=== PATIENT | female | born 1950 | race Caucasian/White ===

== ENCOUNTER → 2016-12-06 | Outpatient (CLI) | payer MEDICARE, OTHER ==
--- NOTE | 2016-12-06 17:14 | RAD ---
DATE: 12/06/2016 EXAM: MAMMO DARWIN SCREENING BILATERAL HISTORY: Asymptomatic screening mammogram. COMPARISON: 07/22/2015, 07/25/2012, 03/20/2009 This study was interpreted with the benefit of Computerized Aided Detection (CAD). The breast parenchyma is primarily fatty replaced. Breast parenchyma level density A. FINDINGS: Bilateral CC and MLO views as well as bilateral tomosynthesis was performed. No suspicious minor calcifications, masses or areas of architectural distortion. Findings are stable from the prior mammogram. IMPRESSION: Negative bilateral mammogram. BI-RADS CATEGORY: 1 NEGATIVE RECOMMENDED FOLLOW-UP: 12M 12 MONTH FOLLOW-UP PQRS compliance statement: Patient information was entered into a reminder system with a target due date 12/06/2017 for the next mammogram. Mammography is a sensitive method for finding small breast cancers, but it does not detect them all and is not a substitute for careful clinical examination. A negative mammogram does not negate a clinically suspicious finding and should not result in delay in biopsying a clinically suspicious abnormality. "Our facility is accredited by the [employer] Mammography Program."
== END | disposition home or self-care (01) ==
LOC: MAMMO 14:05
PROVIDERS: ATTEND Nurse Practitioner Family
DX: Z12.31 Encounter for screening mammogram for malignant neoplasm of breast (principal)
CPT/HCPCS: 77063; G0202; 77067

== ENCOUNTER → 2017-07-03 | Outpatient (CLI) | payer MEDICARE, OTHER ==
--- NOTE | 2017-07-03 15:07 | RAD ---
2 views of the Chest 07/03/2017 2:00 AM Indication: COUGH FOR A WEEK Comparison: Chest radiograph April 04, 2007 Findings: There is no focal consolidation or infiltrate identified. There is no effusion or pneumothorax. The cardiomediastinal silhouette and pulmonary vasculature are within normal limits. No osseous abnormality is identified. Impression: No evidence of acute cardiopulmonary process.
== END | disposition home or self-care (01) ==
LOC: PMG 12:54
PROVIDERS: ATTEND Nurse Practitioner Family
DX: R05 Cough (principal)
CPT/HCPCS: 71046

== ENCOUNTER → 2017-12-12 | Outpatient (CLI) | payer MEDICARE, OTHER ==
--- NOTE | 2017-12-12 15:06 | CARD ---
MR#: [id number] Date of Study: 12/12/2017 Ordering Physician: TRISTIAN MCNEIL, Referring Physician: Danitza MCDONNELL: DILMA Hilario APPROVED REPORT EXAM: Two-dimensional and M-mode echocardiogram with Doppler and color Doppler. Other Information Quality : AverageHR: 94bpm Technically limited study due to body habitus. INDICATION Abnormal ECG RISK FACTORS Hypertension 2D DIMENSIONS Left Atrium(2D)3.5 (1.6-4.0cm)IVSd1.2 (0.7-1.1cm) Aortic Root(2D)3.0 (2.0-3.7cm)LVDd4.7 (3.9-5.9cm) LVOT Diameter2.3 (1.8-2.4cm)PWd1.2 (0.7-1.1cm) LVDs3.7 (2.5-4.0cm)FS (%) 21.4 % SV44.3 mlLVEF(%)43.5 (>50%) Aortic Valve AoV Peak Leonidas.181.3cm/sAoV VTI34.6cm AO Peak GR.13.1mmHgLVOT Peak Leonidas.97.7cm/s LVOT VTI 19.90cmAO Mean GR.7mmHg ERIK (VMAX)2.90we3BDG (VTI)2.39cm2 Mitral Valve MV E Yfedcdmv653.8cm/sMV DECEL OLYA405yg MV A Dzyrrgif83.5cm/sE/A Ratio3.0 Pulmonary Valve PV Peak Hxmcfdli547.7cm/sPV Peak Grad.10mmHg Pulmonary Vein S1 Kkxutfbh62.2cm/sD2 Szbtoyjn68.2cm/s LEFT VENTRICLE The left ventricle is normal size. There is mild concentric left ventricular hypertrophy. Left ventri clay systolic function is mildly impaired. The Ejection Fraction is 40-45%. Septal motion suggestive o f conduction. Mild global hypokinesis. Cannot rule out inferior wall hypokinesis. Tissue Doppler imag ing reveals moderate left ventricular diastolic dysfunction. RIGHT VENTRICLE The right ventricle apex is not well visualized. The right ventricular systolic function is normal. ATRIA The left atrium size is normal. The right atrium size is normal. The interatrial septum is intact wit h no evidence for an atrial septal defect or patent foramen ovale as noted on 2-D or Doppler imaging. AORTIC VALVE The aortic valve is not well visualized. Doppler and Color Flow revealed no significant aortic regurg itation. There is no significant aortic valvular stenosis. There is no aortic valvular vegetation. MITRAL VALVE The mitral valve is mildly thickened. There is no evidence of mitral valve prolapse. There is no mitr al valve stenosis. Doppler and Color-flow revealed trace to mild mitral regurgitation. TRICUSPID VALVE The tricuspid valve is not well visualized. Doppler and Color Flow revealed no tricuspid valve regurg itation noted. There is no tricuspid valve prolapse or vegetation. There is no tricuspid valve stenos is. PULMONIC VALVE The pulmonic valve is not well visualized. Doppler and Color Flow revealed no pulmonic valvular regur gitation. There is no pulmonic valvular stenosis. GREAT VESSELS The aortic root is not well visualized, but is probably normal size. The IVC is dilated. The IVC laurita apses <50% with inspiration. PERICARDIAL EFFUSION There is no pleural effusion. There is no evidence of significant pericardial effusion. Critical Notification Critical Value: No <Conclusion> Left ventricle systolic function is mildly impaired. The Ejection Fraction is 40-45%. Septal motion suggestive of conduction. Mild global hypokinesis. Cannot rule out inferior wall hypoki nesis. Signed by : Nish Sellers, Electronically Approved : 12/12/2017 15:05:45
== END | disposition home or self-care (01) ==
LOC: ECHO 13:49
PROVIDERS: ATTEND Physician Assistant Medical
DX: I34.0 Nonrheumatic mitral (valve) insufficiency (principal); I51.7 Cardiomegaly
CPT/HCPCS: 93306

== ENCOUNTER → 2018-01-09 | Outpatient (CLI) | payer MEDICARE, OTHER ==
[~2018-01-09] VITALS: Ht 162.6 cm; Wt 79.4 kg
[~2018-01-09] MED LIST: ALBU18HF IH; FLUT1DIS3 IH; PHEN37.598 PO; REGADENOSON 0.4 MG/5 ML DISP.SYRIN. IV ONE; SIMV10TA3 PO
--- NOTE | 2018-01-09 12:32 | RAD ---
MR#: [id number] Date of Study: 01/09/2018 Ordering Physician: QUETA ELDRIDGE, Referring Physician: SKYLER CASTILLO Tech: CASA Priest ARRT (Analy) (N) APPROVED REPORT Test Type: Pharmacological Stress Nurse/Tech: KAM Rasmussen Test Indications: abn. ekg Cardiac History: High cholesterol Medications: See Electronic Medical Record Medical History: See Electronic Medical Record Resting ECG: SR, LBBB Resting Heart Rate: 67 bpm Resting Blood Pressure: 164/67mmHg Pretest Chest Pain: None Nurse/Tech Notes SR, LBBB Consent: The procedure was explained to the patient in lay terms. Informed consent was witnessed. Ahmet eout was entered into [employer]. History and Stress Test performed by CASA Priest ARRT (R) (N) Pharm. Details Pharmacologic stress testing was performed using 0.4mg per 5ml of regadenoson given intravenously ove r 7-10 seconds. Stress Symptoms No chest pain or symptoms. POST EXERCISE Reason for Termination: Infusion complete Target HR: 129 Max HR: 103 bpm 79% of Maximum Predicted HR: 129 bpm Exercise duration: 6 min:sec, Stage Max Blood Pressure: 149/69mmHg Blood Pressure response to exercise: Normal blood pressure response during stress. Chest Pain: No. Arrhythmia: No. ST Change: No. INTERPRETATION Stress EKG Conclusion: Baseline EKG showed sinus rhythm with LBBB. Nondiagnostic changes at peak str ess. No arrhythmias. Imaging Protocol IMAGE PROTOCOL: Rest Tc-99m/stress Tc-99m 1 day Rest: Stress: Viability: Radiopharm.Tc99m RhvagdkjsAd99f Sestamibi Bcbq79kNo 33mCi Img Date 01/09/2018 01/09/2018 Inj-Img Bpla29kpv. 45min. Rest Admin Site:IV - Left AntecubitalAdministrator: CASA Priest ARRT (R)(N) Stress Admin Site: IV - Left AntecubitalAdministrator: CASA Priest ARRT (Analy)(N) STRESS DATA End Diast. Vol.138.0mlAv. Heart Rate84.0bpm LVEDV index BSA3.0mlCardiac Output0.1L/min End Syst. Vol.71.0mlCO Index BSA5.7L/min LVESV index BSA1.0mlMyocardial Svxq904.0g Eject. Igfjogmj77.0% Stress Rates Pk. Fill Rate1.96EDV/secLVtime Pk. Fill 66.79msec Pk. Empty Rate2.46ESV/secLVtime Pk. Dtymx415.59msec 1/3 Pk. Fill1.47EDV/sec Stress Scores Regional WT2.00Summed WT26.00 Regional WM0.00Summed WM22.00 LV Perfusion Scintigraphic images showed small fixed defect involving the apical wall consistent with previous kael cardial infarction without any significant reversibility. Wall Motion Apical wall hypokinesis. Abnormal septal wall motion probably secondary to conduction defect. The eje ction fraction is calculated at 49%. LV Perf. Quant 17 Seg. SSS6.00 17 Seg. SRS4.00 17 Seg. SDS2.00 Stress Defect Extent (% LAD)21.30Rest Defect Extent (% LAD)12.50Rev. Defect Extent (% LAD)2.50 Stress Defect Extent (% LCX) 0.00Rest Defect Extent (% LCX)0.00Rev. Defect Extent (% LCX)0.00 Stress Defect Extent (% RCA)0.00Rest Defect Extent (% RCA)0.00Rev. Defect Extent (% RCA)0.00 Stress Defect Extent (% KAEL)10.40Rest Defect Extent (% KAEL)7.60Rev. Defect Extent (% KAEL)0.90 Conclusion 1. Regadenoson cardioisotope stress test showed small apical wall infarct without any significant isc hemia. 2. Apical wall hypokinesis and abnormal septal wall motion from bundle branch block with ejection fra ction At 49%. 3. Low to intermediate risk for cardiac events. Signed by : Wander Luo, Electronically Approved : 01/09/2018 12:30:37
== END | disposition home or self-care (01) ==
LOC: NM 07:33
PROVIDERS: ATTEND Internal Medicine Cardiovascular Disease
DX: I45.4 Nonspecific intraventricular block (principal); E78.00 Pure hypercholesterolemia, unspecified
CPT/HCPCS: 78452; 93017; 96374; 96375; 96376; A9500; J2785

== ENCOUNTER → 2018-11-20 | Outpatient (CLI) | payer MEDICARE, OTHER ==
[~2018-11-20] MED LIST changes: -ALBU18HF IH; +ALBU2.5V8 IH; -REGADENOSON 0.4 MG/5 ML DISP.SYRIN. IV ONE
--- NOTE | 2018-11-21 10:42 | CARD ---
MR#: [id number] Date of Study: 11/20/2018 Ordering Physician: QUETA ELDRIDGE, Referring Physician: QUETA ELDRIDGE, Tech: Brit Ball APPROVED REPORT EXAM: Two-dimensional and M-mode echocardiogram with Doppler and color Doppler. Other Information Quality : GoodHR: 67bpm INDICATION Lower Edema RISK FACTORS Hypertension Hyperlipidemia Asthma 2D DIMENSIONS RVDd2.4 (2.9-3.5cm)Left Atrium(2D)4.3 (1.6-4.0cm) IVSd1.1 (0.7-1.1cm)Aortic Root(2D)2.9 (2.0-3.7cm) LVDd5.5 (3.9-5.9cm)LVOT Diameter1.8 (1.8-2.4cm) PWd1.1 (0.7-1.1cm)LVDs3.9 (2.5-4.0cm) FS (%) 29.1 %SV80.8 ml LVEF(%)55.4 (>50%) Aortic Valve AoV Peak Leonidas.169.9cm/sAoV VTI40.3cm AO Peak GR.11.6mmHgLVOT Peak Leonidas.89.9cm/s LVOT VTI 21.11cmAO Mean GR.7mmHg ERIK (VMAX)1.41lb2RRI (VTI)1.39cm2 Mitral Valve MV E Kwumyyoh95.6cm/sMV DECEL KZLE601pc MV A Bpztfiqe197.4cm/sE/A Ratio0.8 Pulmonary Valve PV Peak Ciihktdw067.7cm/sPV Peak Grad.4mmHg Tricuspid Valve TR P. Rbbwiruu349jq/sRAP YCYBQLJQ0eoSv TR Peak Gr.63ayRkEIJW51moBh Pulmonary Vein S1 Xeylulua25.1cm/sD2 Lieuxgod38.1cm/s LEFT VENTRICLE The left ventricle is normal size. There is mild concentric left ventricular hypertrophy. The left ve ntricular systolic function is mildly diminished. The Ejection Fraction is 45-50%. Transmitral Dopple r flow pattern is Grade I-abnormal relaxation pattern. RIGHT VENTRICLE The right ventricle is normal size. There is normal right ventricular wall thickness. The right ventr icular systolic function is normal. ATRIA The left atrium size is normal. The right atrium size is normal. The interatrial septum is intact wit h no evidence for an atrial septal defect or patent foramen ovale as noted on 2-D or Doppler imaging. AORTIC VALVE The aortic valve is mildly thickened. Doppler and Color Flow revealed trace aortic regurgitation. The re is no significant aortic valvular stenosis. MITRAL VALVE The mitral valve is normal in structure and function. There is no evidence of mitral valve prolapse. There is no mitral valve stenosis. Doppler and Color-flow revealed trace mitral regurgitation. TRICUSPID VALVE The tricuspid valve is normal in structure and function. Doppler and Color Flow revealed trace tricus pid valve regurgitation noted with an estimated PAP of 22 mmHg. There is no tricuspid valve stenosis. PULMONIC VALVE The pulmonic valve is not well visualized. Doppler and Color Flow revealed trace pulmonic valvular re gurgitation. GREAT VESSELS The aortic root is normal in size. The IVC is normal in size and collapses >50% with inspiration. PERICARDIAL EFFUSION There is no evidence of significant pericardial effusion. Critical Notification Critical Value: No <Conclusion> The left ventricular systolic function is mildly diminished. The Ejection Fraction is 45-50%. Transmitral Doppler flow pattern is Grade I-abnormal relaxation pattern. Trace aortic regurgitation. Trace mitral regurgitation. Trace tricuspid valve regurgitation noted with an estimated PAP of 22 mmHg. There is no evidence of significant pericardial effusion. Signed by : Wander Luo, Electronically Approved : 11/21/2018 10:41:43
== END | disposition home or self-care (01) ==
LOC: ECHO 12:45
PROVIDERS: ATTEND Internal Medicine Cardiovascular Disease
DX: R60.0 Localized edema (principal); I11.9 Hypertensive heart disease without heart failure; E78.5 Hyperlipidemia, unspecified; J45.909 Unspecified asthma, uncomplicated; R00.8 Other abnormalities of heart beat
CPT/HCPCS: 93306

== ENCOUNTER → 2019-12-03 | Outpatient (CLI) | payer MEDICARE, OTHER ==
[~2019-12-03] MED LIST changes: +HYDR-3165 PO; +ONDA4TAB12 PO; +SIMV10TA15 PO; -SIMV10TA3 PO
--- NOTE | 2019-12-03 16:14 | CARD ---
MR#: [id number] Date of Study: 12/03/2019 Ordering Physician: QUETA ELDRIDGE, Referring Physician: QUETA ELDRIDGE, Tech: Solange Bradshaw [facility] APPROVED REPORT EXAM: Two-dimensional and M-mode echocardiogram with Doppler and color Doppler. Other Information Quality : Fair Technically limited study due to body habitus. INDICATION Abnormal ECG 2D DIMENSIONS RVDd1.8 (2.9-3.5cm)Left Atrium(2D)3.1 (1.6-4.0cm) IVSd0.8 (0.7-1.1cm)Aortic Root(2D)2.4 (2.0-3.7cm) LVDd6.1 (3.9-5.9cm)LVOT Diameter1.9 (1.8-2.4cm) PWd0.8 (0.7-1.1cm)LVDs4.8 (2.5-4.0cm) FS (%) 21.2 %SV78.7 ml LVEF(%)42.3 (>50%) Aortic Valve AoV Peak Leonidas.120.5cm/sAoV VTI22.4cm AO Peak GR.5.8mmHgLVOT Peak Leonidas.94.6cm/s LVOT VTI 19.49cmAO Mean GR.3mmHg ERIK (VMAX)2.90ix0WEE (VTI)2.38cm2 Mitral Valve MV E Rjxfssof76.0cm/sMV DECEL OPVL323qb MV A Ghhlwgig67.6cm/sE/A Ratio0.8 Tricuspid Valve TR P. Vsmpoxci111dj/sRAP WDZVOCQI8kjNs TR Peak Gr.41ejGxNANL32emTv Pulmonary Vein S1 Esvqibka43.4cm/sD2 Kdgbimga07.5cm/s LEFT VENTRICLE The Left Ventricle is mildly dilated. There is normal left ventricular wall thickness. Left ventricle ejection fraction is moderately impaired. The Ejection Fraction is 35%. The septal wall motion sugge stive of conduction defect. There is moderate global hypokinesis of the left ventricle. Tissue Dopple r imaging reveals moderate left ventricular diastolic dysfunction. RIGHT VENTRICLE The right ventricle is normal size. The right ventricular systolic function is normal. ATRIA The left atrium size is normal. The right atrium size is normal. The interatrial septum is intact wit h no evidence for an atrial septal defect or patent foramen ovale as noted on 2-D or Doppler imaging. AORTIC VALVE The aortic valve is calcified but opens well. Doppler and Color Flow revealed trace aortic regurgitat ion. There is no significant aortic valvular stenosis. MITRAL VALVE The mitral valve is calcified but opens well. There is no evidence of mitral valve prolapse. There is no mitral valve stenosis. Doppler and Color-flow revealed mild mitral regurgitation. TRICUSPID VALVE The tricuspid valve is normal in structure and function. The PA pressure was estimated at 30 mmHg. Do ppler and Color Flow revealed trace tricuspid regurgitation. There is no tricuspid valve stenosis. PULMONIC VALVE The pulmonic valve is not well visualized. Doppler and Color Flow revealed no pulmonic valvular regur gitation. There is no pulmonic valvular stenosis. GREAT VESSELS The aortic root is normal in size. The ascending aorta is not well seen. The IVC is normal in size an d collapses >50% with inspiration. PERICARDIAL EFFUSION There is no evidence of significant pericardial effusion. Critical Notification Critical Value: No <Conclusion> Left ventricle ejection fraction is moderately impaired. The Ejection Fraction is 35%. The septal wall motion suggestive of conduction defect. There is moderate global hypokinesis of the l eft ventricle. Signed by : Queta Eldridge, Electronically Approved : 12/03/2019 16:13:40
== END ==
LOC: ECHO 12:50
PROVIDERS: ATTEND Internal Medicine Cardiovascular Disease
DX: I08.0 Rheumatic disorders of both mitral and aortic valves (principal)
CPT/HCPCS: 93306

== ENCOUNTER 2020-01-15 16:46 | Emergency (ER) | payer MEDICARE, OTHER ==
[~2020-01-15] VITALS: Ht 162.6 cm; Wt 85.9 kg
[~2020-01-15 16:46] MED LIST changes: -HYDR-3165 PO; -ONDA4TAB12 PO
--- NOTE | 2020-01-15 17:09 | PHYS DOC ---
Past History Past Medical History: CHF () Past Surgical History: Cholecystectomy () General Adult EDM: Chief Complaint: NAUSEA/VOMITING/DIARRHEA HPI: HPI: 69F with PMH of HTN, CHF, p/w dull midabdominal pain that began this afternoon around 12PM at rest. Now also involves the RLQ. Prior bjorn. No other abd surgeries. Also reports N/V x4, loose BM x1, as well as some mild SOA. No CP, fever, chills, dysuria, flank pain, hematuria. No prior similar episodes. No aggravating or alleviating factors. () Review of Systems: Review of Systems: Gen: No fever, chills. Eyes: No blurred vision, diplopia. ENT: No nasal congestion, sore throat. CV: No CP, palpitations. Resp. No cough. Reports dyspnea. GI: Reports diarrhea, abd pain, N/V. : No dysuria, hematuria. Neuro: No DIXON, dizziness, weakness. MSK: No myalgia, arthralgia, back pain. Skin: No acute rash or lesion. () Heart Score: Risk Factors: Risk Factors: DM, Current or recent (<one month) smoker, HTN, HLP, family hist ory of CAD, obesity. Risk Scores: Score 0 - 3: 2.5% MACE over next 6 weeks - Discharge Home Score 4 - 6: 20.3% MACE over next 6 weeks - Admit for Clinical Observation Score 7 - 10: 72.7% MACE over next 6 weeks - Early Invasive Strategies () Current Medications: Current Meds: Current Medications Medications (Trade) Dose Ordered Sig/Marilynn Start Time Stop Time Status Last Admin Dose Admin Ondansetron HCl (Zofran) 4 mg 1X ONCE 01/15/20 17:15 01/15/20 17:16 UNV () Allergies: Allergies: Allergies Coded Allergies Type Severity Reaction Last Updated Verified Penicillins Allergy Unknown 01/09/18 Yes Sulfa (Sulfonamide Antibiotics) Allergy Unknown 01/09/18 Yes cephalexin Allergy Unknown 01/09/18 Yes levofloxacin Allergy Unknown 01/09/18 Yes () Physical Exam: PE: Gen: NAD. Well nourished. Head: NC/AT. Eyes: No scleral icterus. No conjunctival injection. ENT: MMM. Posterior OP clear. Neck: Supple. CV: RRR. Peripheral pulses intact. Resp: CTAB. Abd: Soft. Nondistended. Mid abdominal and right lower abdominal tenderness without rebound, guarding, rigidity. No flank percussion tenderness. No overlying skin changes. MSK: No peripheral cyanosis. No edema. Neuro: Awake and alert. Skin. Warm. Dry. Psych: Appropriate mood & affect. (ENDER DIAZ DO) EKG: EKG: EKG at 1721. Sinus rhythm. Heart rate 73. Intraventricular conduction delay with QRS interval of 154 ms. Anteroseptal and inferior Q waves. No STEMI. Interpreted by me. (ENDER DIAZ DO) Radiology/Procedures: Radiology/Procedures: CHEST X-RAY INDICATION: Reason: SOA / Spl. Instructions: / History: . TECHNIQUE: Single view COMPARISON: None FINDINGS: The heart size is normal. The great vessels appear unremarkable. There is no hilar or mediastinal mass. Lungs are mildly hypoventilatory but show no focal infiltrates. There is no pleural effusion or pneumothorax. There are no significant osseous abnormalities. IMPRESSION: No active cardiopulmonary disease. Electronically signed by: Humberto Hare MD (01/15/2020 5:26 PM) [facility] (ENDER DIAZ DO) Impressions: EXAM: CT Abdomen and Pelvis with IV contrast INDICATION: Reason: Mid abd and RLQ pain, OMNI 300, 60ml / Spl. Instructions: / History: TECHNIQUE: Multi-detector row CT images were acquired from the lung bases through the abdomen and pelvis with the use of IV contrast. Sagittal and coronal images were acquired from the transaxial data. All CT scans performed at this facility utilize dose optimization techniques as appropriate to the exam, including the following: Automated exposure control and adjustment of the mA and/or KV according to patient size (this includes techniques or standardized protocols for targeted exams where dose is indication/reason for exam). IV CONTRAST: Administered ORAL CONTRAST: Not administered COMPARISON: None FINDINGS: LOWER CHEST: Unremarkable LIVER: Unremarkable BILIARY SYSTEM: Gallbladder is surgically absent. Bile ducts are not dilated. PANCREAS: Unremarkable SPLEEN: Unremarkable ADRENALS: Unremarkable KIDNEYS & URETERS: Distal 2 mm right ureteral stone (image 61 series 2) is associated with mild right periureteral soft tissue stranding and parapelvic soft tissue stranding with grade 1 hydronephrosis. Left kidney has a partially exophytic 1 cm cyst at the superior pole and requires no additional imaging follow-up. BLADDER: Unremarkable REPRODUCTIVE ORGANS: Myomatous uterus, including calcified 4.6 cm fundal fibroid. GASTROINTESTINAL: Scattered colonic diverticuli. Otherwise the stomach, small bowel, and colon are unremarkable. The appendix is normal. MESENTERY/PERITONEUM/RETROPERITONEUM: Unremarkable VASCULAR: Unremarkable LYMPH NODES: No adenopathy OSSEOUS & SOFT TISSUES: Unremarkable IMPRESSION: Distal right ureteral obstruction from a 2 mm stone. Electronically signed by: Humberto Hare MD (01/15/2020 6:40 PM) [facility] [place] DICTATED AND SIGNED BY: HUMBERTO HARE MD DATE: 01/15/201839 CC: CHELLY BAH DO; ENDER DIAZ DO; TRISTIAN MCNEIL ~ (CHELLY BAH DO) Course & Med Decision Making: Course & Med Decision Making Pertinent Labs and Imaging studies reviewed. (See chart for details) In summary, 69F with HTN, CHF, prior bjorn, p/w mid abd and RLQ pain, N/V/D. No complaints. Benign exam. HDS. Abd labs and CTAP ordered and remain pending. Given zofran. Signed out to Dr. Bah pending remainder of studies and disposition. (ENDER DIAZ DO) Course & Med Decision Making The patient's labs are unremarkable. Her urinalysis is negative for infection but is positive for blood. CT scan shows an obstructing kidney stone of 2 mm. Her creatinine is 1.1. A stone of this size should pass. I will discharge her with [place] 5/325 for pain and Zofran. The patient will make an appointment with the urologist in case it does not pass in the next couple days. If she develops a fever or other concerning symptoms, she will return to the emergency room. She is stable for discharge at this time. (CHELLY BAH DO) Dragon Disclaimer: Dragon Disclaimer: This electronic medical record was generated, in whole or in part, using a voice recognition dictation system. (ENDER DIAZ DO) Departure Departure: Impression: Primary Impression: Abdominal pain Additional Impression: Kidney stone on right side Disposition: HOME/RESIDENCE PRIOR TO ADM Condition: STABLE Referrals: TRISTIAN MCNEIL (PCP) Patient Instructions: Kidney Stones, Zpnc-jm-Cohb Scripts Hydrocodone Bit/Acetaminophen (NORCO 5-325 TABLET) 1 Each Tablet 1 TAB PO PRN Q6HRS PRN for PAIN, #14 TAB 0 Refills Prov: CHELLY BAH DO 01/15/20 Ondansetron (ONDANSETRON ODT) 4 Mg Tab.rapdis 1 TAB PO PRN Q6-8HRS PRN for VOMITING, #16 TAB Prov: CHELLY BAH DO 01/15/20 Justification of Admission: Justification of Admission: Justification of Admission Dx: N/A (ENDER DIAZ DO) Justification of Admission Dx: N/A (CHELLY BAH DO) ENDER DIAZ DO Jan 15, 2020 17:09 CHELLY BAH DO Jan 15, 2020 18:51
--- NOTE | 2020-01-15 17:27 | EKG ---
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
--- NOTE | 2020-01-15 17:29 | RAD ---
EXAM: PORTABLE CHEST 1V INDICATION: Reason: SOA / Spl. Instructions: / History: . TECHNIQUE: Single view COMPARISON: None FINDINGS: The heart size is normal. The great vessels appear unremarkable. There is no hilar or mediastinal mass. Lungs are mildly hypoventilatory but show no focal infiltrates. There is no pleural effusion or pneumothorax. There are no significant osseous abnormalities. IMPRESSION: No active cardiopulmonary disease. Electronically signed by: Ariela Hare MD (01/15/2020 5:26 PM) [facility]
[2020-01-15] MEDS ORDERED: ONDANSETRON PF 4 MG/2 ML VIAL. IVP ONE ×2 (17:30→18:30)
[2020-01-15] MEDS ORDERED: IOHEXOL 300 MG/ML 75 ML VIAL. IV ONE (17:30)
[2020-01-15 17:35] LABS: BASO # 0.1 x10^3/uL (0.0-0.2); BASO % 1 % (0-3); EOS # 0.1 x10^3/uL (0.0-0.7); EOS % 1 % (0-3); HEMATOCRIT 42.5 % (36.0-47.0); LYMPH # 1.4 x10^3/uL (1.0-4.8); LYMPH % 14 % (24-48); MEAN CORPUSCULAR HEMOGLOBIN 27 pg (25-35); MEAN CORPUSCULAR HGB CONC 33 g/dL (31-37); MEAN CORPUSCULAR VOLUME 83 fL (79-100); MONO # 0.4 x10^3/uL (0.0-1.1); MONO % 4 % (0-9); NEUT # 7.6 x10^3uL (1.8-7.7); NEUT % 80 % (31-73); PLATELET COUNT 222 x10^3/uL (140-400); RED BLOOD COUNT 5.12 x10^6/uL (3.50-5.40); RED CELL DISTRIBUTION WIDTH 14.7 % (11.5-14.5); WHITE BLOOD COUNT 9.5 x10^3/uL (4.0-11.0)
[2020-01-15 17:43] LABS: CALCIUM 9.5 mg/dL (8.5-10.1); CREATININE 1.1 mg/dL (0.6-1.0); GFR 49.1; POTASSIUM 3.9 mmol/L (3.5-5.1)
[2020-01-15 17:49] LABS: ALBUMIN 4.2 g/dL (3.4-5.0); ALBUMIN/GLOBULIN RATIO 1.2 (1.0-1.7); TOTAL BILIRUBIN 0.3 mg/dL (0.2-1.0); TOTAL PROTEIN 7.8 g/dL (6.4-8.2)
--- NOTE | 2020-01-15 18:43 | RAD ---
EXAM: CT Abdomen and Pelvis with IV contrast INDICATION: Reason: Mid abd and RLQ pain, OMNI 300, 60ml / Spl. Instructions: / History: TECHNIQUE: Multi-detector row CT images were acquired from the lung bases through the abdomen and pelvis with the use of IV contrast. Sagittal and coronal images were acquired from the transaxial data. All CT scans performed at this facility utilize dose optimization techniques as appropriate to the exam, including the following: Automated exposure control and adjustment of the mA and/or KV according to patient size (this includes techniques or standardized protocols for targeted exams where dose is indication/reason for exam). IV CONTRAST: Administered ORAL CONTRAST: Not administered COMPARISON: None FINDINGS: LOWER CHEST: Unremarkable LIVER: Unremarkable BILIARY SYSTEM: Gallbladder is surgically absent. Bile ducts are not dilated. PANCREAS: Unremarkable SPLEEN: Unremarkable ADRENALS: Unremarkable KIDNEYS & URETERS: Distal 2 mm right ureteral stone (image 61 series 2) is associated with mild right periureteral soft tissue stranding and parapelvic soft tissue stranding with grade 1 hydronephrosis. Left kidney has a partially exophytic 1 cm cyst at the superior pole and requires no additional imaging follow-up. BLADDER: Unremarkable REPRODUCTIVE ORGANS: Myomatous uterus, including calcified 4.6 cm fundal fibroid. GASTROINTESTINAL: Scattered colonic diverticuli. Otherwise the stomach, small bowel, and colon are unremarkable. The appendix is normal. MESENTERY/PERITONEUM/RETROPERITONEUM: Unremarkable VASCULAR: Unremarkable LYMPH NODES: No adenopathy OSSEOUS & SOFT TISSUES: Unremarkable IMPRESSION: Distal right ureteral obstruction from a 2 mm stone. Electronically signed by: Ariela Hare MD (01/15/2020 6:40 PM) [facility]
[2020-01-15 18:55] LABS: BILIRUBIN,URINE NEG (NEG); CLARITY,URINE HAZY; COLOR,URINE YELLOW; GLUCOSE,URINE 100 mg/dL (NEG)
[2020-01-15 18:56] LABS: BACTERIA,URINE 0 /HPF (0-FEW); NITRITE,URINE NEG (NEG); RBC,URINE >40 /HPF (0-2); SQUAMOUS EPITHELIAL CELL,UR FEW /LPF; UROBILINOGEN,URINE 0.2 mg/dL (0.2 mg/dL); WBC,URINE 0 /HPF (0-4)
[2020-01-15] MEDS ORDERED: HYDR-3165 PO (19:12)
[2020-01-15] MEDS ORDERED: ONDA4TAB12 PO (19:12)
[2020-01-15] MEDS ORDERED: HYDROcodone/APAP 5/325MG 1 TAB TABLET PO ONE (19:15)
[2020-01-15 19:20] VITALS: BP 166/72
== END 2020-01-15 19:23 | disposition home or self-care (01) ==
LOC: ER 16:46
DX: N13.2 Hydronephrosis with renal and ureteral calculous obstruction (principal); I11.0 Hypertensive heart disease with heart failure; I50.9 Heart failure, unspecified; Z90.49 Acquired absence of other specified parts of digestive tract; Z88.0 Allergy status to penicillin; Z88.2 Allergy status to sulfonamides; Z88.1 Allergy status to other antibiotic agents
CPT/HCPCS: 36415; 71045; 74177; 80053; 81001; 83690; 83735; 84484; 85025; 93005; 96374; 96376; 99285; J2405; Q9967

== ENCOUNTER → 2020-03-04 | Outpatient (CLI) | payer MEDICARE, OTHER ==
[~2020-03-04] MED LIST changes: +HYDR-3165 PO; +ONDA4TAB12 PO
--- NOTE | 2020-03-05 09:16 | RAD ---
MUGA Clinical Indication: Reason: nonischemic cardiomyopathy Comparison: None. Technique: 24.7 mCi of Tc-99 M labeled Ultratag red blood cells. Findings: Patient heart rate is 72 bpm. Multiple rejected beats are noted, many of which had short R-R time. Correlate for PVCs. The calculated left ventricular ejection fraction is 48.6%. Impression: Left ventricular ejection fraction of 48.6%. Electronically signed by: Rebel Vegas MD (03/05/2020 9:13 AM) [id number]
== END ==
LOC: NM 09:07
PROVIDERS: ATTEND Internal Medicine Cardiovascular Disease
DX: I42.9 Cardiomyopathy, unspecified (principal)
CPT/HCPCS: 78472; A9560

== ENCOUNTER → 2020-04-13 | Outpatient (CLI) | payer MEDICARE, OTHER ==
[~2020-04-13] MED LIST changes: +SACU1TAB PO
[2020-04-16 11:13] VITALS: BP 141/75
== END ==
LOC: LAB 13:12
PROVIDERS: ATTEND Nurse Anesthetist, Certified Registered
DX: Z01.812 Encounter for preprocedural laboratory examination (principal); H26.8 Other specified cataract; Z20.828 Contact with and (suspected) exposure to other viral communicable diseases
CPT/HCPCS: C9803; U0003

== ENCOUNTER → 2020-04-16 | Day surgery (SDC) | payer MEDICARE, OTHER ==
[~2020-04-16] MED LIST changes: +ACETAMINOPHEN 500 MG TABLET PO PRN; +BALANCED SALT IRRIG SOLN NO.2 500 ML IO ONE; +BENZONATATE 100 MG CAPSULE. PO PRN; +BRIMONIDINE 0.2% OPHTH SOLUTION 5ML BOTTLE. OS ONE; +CHONDROIT-SOD-HYALURONATE KIT. OS ONE; +EPINEPHrine AMPULE 0.5 MG in BALANCED SALT IRRIG SOLN PLUS 500 ML IRR ONE; +IBUPROFEN 200 MG TABLET PO PRN; +IPRATRPIUM/ALBUTEROL 0.5/2.5MG 3 ML NEBU. NEB PRN; +IV RINGERS SOLUTION,LACTATED 1,000 ML IV SCH; +LIDO/EPI IN BSS OPHTH 4 ML SYRINGE. OD PRN; +LIDO/EPI IN BSS OPHTH 4 ML SYRINGE. OS PRN; +LIDOCAINE 2% JELLY 6ML IN APPLICATOR. OS PRN; +METO-313 PO; +MIDAZOLAM HCL PF 2 MG/2 ML VIAL. IV ONE; +MIDAZOLAM HCL PF 2 MG/2 ML VIAL. ONE; +MOXIFLOXACIN 0.5% OPHTH SOLUTION 3ML BOTTLE. ONE; +NON FORMULARY ITEM OS ONE; +ONDANSETRON PF 4 MG/2 ML VIAL. IV PRN; +PHENYLEPHRINE 10% OPHTH SOLUTION 5ML BOTTLE. OS PRN; +PHENYLEPHRINE 2.5% OPHTH SOLUTION 2ML BOTTLE. OS SCH; +POVIDONE-IODINE 5% OPHTH SOLUTION 30ML BOTTLE. ONE; +POVIDONE-IODINE 5% OPHTH SOLUTION 30ML BOTTLE. OS ONE; +POVIDONE-IODINE 5% OPHTH SOLUTION 30ML BOTTLE. OS PRN; +PROPARACAINE 0.5% OPHTH SOLUTION 15ML BOTTLE. OS ONE; +PROPARACAINE 0.5% OPHTH SOLUTION 15ML BOTTLE. OS PRN; +TOBRAMYCIN 0.3% OPHTH SOLUTION 5ML BOTTLE. OS SCH; +TROPICAMIDE 1% OPHTH SOLUTION 15ML BOTTLE. OS SCH; +prednisoLONE ACETATE 1% OPHTH SUSPENSION 5ML BOTTLE. OS ONE
[2020-04-16] MEDS: TROPICAMIDE 1% OPHTH SOLUTION 15ML BOTTLE. OS SCH ×3 (09:33→09:59)
[2020-04-16] MEDS: PHENYLEPHRINE 2.5% OPHTH SOLUTION 2ML BOTTLE. OS SCH ×3 (09:33→09:59)
[2020-04-16] MEDS: DICLOFENAC SODIUM 0.1% OPHTH SOLUTION 2.5ML BOTTLE. OS SCH ×2 (09:34→09:41)
[2020-04-16] MEDS: TOBRAMYCIN 0.3% OPHTH SOLUTION 5ML BOTTLE. OS SCH ×2 (09:34→09:41)
[2020-04-16 11:13] VITALS: BP 141/75
--- NOTE | 2020-04-16 11:19 | PDOC4 ---
SURGEON: Chaim Walden MD Date of Procedure: 04/16/20 PREOP Diagnosis Visually significant cataract: Left Eye OS Pre-existing astigmatism: Left Eye OS POSTOP Diagnosis Same PROCEDURE: Phaco w/ posterior chamber IOL: Left Eye OS ANESTHESIA x Deep forniceal periocular 2% Lidocaine jelly Josi/retro bulbar block with 2% Lidocaine with 0.5% Marcaine DESCRIPTION OF PROCEDURE The risks, benefits, and alternatives were discussed with the patient who elected to proceed. Informed consent was obtained in writing and placed in the chart After anesthetizing the eye topically, the patient was taken to the operating room, and the operative eye was prepped and draped in the usual sterile fashion for ocular surgery. A wire lid speculum was placed. A 1-mm clear corneal paracentesis incision was created with the side-port blade at a position three o'clock hours clockwise from the temporal cornea. Then, 1% non-preserved Lidocaine with epinephrine was injected into the anterior chamber followed by viscoelastic. Cotton-tipped applicators were used to stabilize the globe, and a 2.4 mm keratome was used to create a self-sealing incision in clear cornea at the temporal limbus. The Utrata forceps were used to create a continuous curvilinear capsulorrhexis. Balanced saline solution was injected vi a cannula beneath the capsulorrhexis edge to hydrodissect the lens nucleus and cortex from the lens capsule. The phacoemulsification handpiece and a chopping instrument were then used to remove the lens nucleus. The remaining epinuclear material and cortex were removed with the irrigation/aspiration handpiece. Viscoelastic was used to re-inflate the lens capsule, and the intraocular lens was injected directly into the capsular bag. The corneal wound edges were hydrated with balanced salt solution on a cannula and the irrigation/aspiration handpiece was used to extract the remaining viscoelastic. Cefuroxime 0.1mg/ml / Vigamox 0.5% was injected into the anterior chamber intracamerally. The wounds were inspected and found to be watertight at an appropriate intraocular pressure. Topical antibiotic drops were placed on the corneal surface. LRI: No If Yes, Number [] [place] [] Length [] degrees Depth [] microns Incision Clifford: 180 Toric Lens Clifford 105 Patch/shield with Maxitrol/Tobradex/Erythromycin ointment: Yes No Co-managed patients/postop examination stable for co-management with referring doctor. CHAIM WALDEN MD Apr 16, 2020 11:19
== END | disposition home or self-care (01) ==
LOC: SURG 08:34
PROVIDERS: ATTEND Ophthalmology
DX: H25.12 Age-related nuclear cataract, left eye (principal); H52.202 Unspecified astigmatism, left eye; J45.909 Unspecified asthma, uncomplicated; E78.00 Pure hypercholesterolemia, unspecified; I11.0 Hypertensive heart disease with heart failure; I50.9 Heart failure, unspecified; N13.2 Hydronephrosis with renal and ureteral calculous obstruction; Z90.49 Acquired absence of other specified parts of digestive tract; Z98.890 Other specified postprocedural states; Z88.0 Allergy status to penicillin; Z88.2 Allergy status to sulfonamides; Z88.8 Allergy status to other drugs, medicaments and biological substances; Z79.899 Other long term (current) drug therapy
CPT/HCPCS: 66984; J0171; J2250; V2632

== ENCOUNTER → 2020-04-27 | Outpatient (CLI) | payer MEDICARE, OTHER ==
[2020-04-16 11:13] VITALS: BP 141/75
[~2020-04-27] MED LIST changes: -ACETAMINOPHEN 500 MG TABLET PO PRN; -BALANCED SALT IRRIG SOLN NO.2 500 ML IO ONE; -BENZONATATE 100 MG CAPSULE. PO PRN; -BRIMONIDINE 0.2% OPHTH SOLUTION 5ML BOTTLE. OS ONE; -CHONDROIT-SOD-HYALURONATE KIT. OS ONE; -EPINEPHrine AMPULE 0.5 MG in BALANCED SALT IRRIG SOLN PLUS 500 ML IRR ONE; -IBUPROFEN 200 MG TABLET PO PRN; -IPRATRPIUM/ALBUTEROL 0.5/2.5MG 3 ML NEBU. NEB PRN; -IV RINGERS SOLUTION,LACTATED 1,000 ML IV SCH; -LIDO/EPI IN BSS OPHTH 4 ML SYRINGE. OD PRN; -LIDO/EPI IN BSS OPHTH 4 ML SYRINGE. OS PRN; -LIDOCAINE 2% JELLY 6ML IN APPLICATOR. OS PRN; -MIDAZOLAM HCL PF 2 MG/2 ML VIAL. IV ONE; -MIDAZOLAM HCL PF 2 MG/2 ML VIAL. ONE; -MOXIFLOXACIN 0.5% OPHTH SOLUTION 3ML BOTTLE. ONE; -NON FORMULARY ITEM OS ONE; -ONDANSETRON PF 4 MG/2 ML VIAL. IV PRN; -PHENYLEPHRINE 10% OPHTH SOLUTION 5ML BOTTLE. OS PRN; -PHENYLEPHRINE 2.5% OPHTH SOLUTION 2ML BOTTLE. OS SCH; -POVIDONE-IODINE 5% OPHTH SOLUTION 30ML BOTTLE. ONE; -POVIDONE-IODINE 5% OPHTH SOLUTION 30ML BOTTLE. OS ONE; -POVIDONE-IODINE 5% OPHTH SOLUTION 30ML BOTTLE. OS PRN; -PROPARACAINE 0.5% OPHTH SOLUTION 15ML BOTTLE. OS ONE; -PROPARACAINE 0.5% OPHTH SOLUTION 15ML BOTTLE. OS PRN; -TOBRAMYCIN 0.3% OPHTH SOLUTION 5ML BOTTLE. OS SCH; -TROPICAMIDE 1% OPHTH SOLUTION 15ML BOTTLE. OS SCH; -prednisoLONE ACETATE 1% OPHTH SUSPENSION 5ML BOTTLE. OS ONE
== END ==
LOC: LAB 11:42
PROVIDERS: ATTEND Nurse Anesthetist, Certified Registered
DX: Z01.812 Encounter for preprocedural laboratory examination (principal); H26.8 Other specified cataract; Z20.828 Contact with and (suspected) exposure to other viral communicable diseases
CPT/HCPCS: U0003

== ENCOUNTER → 2020-04-30 | Day surgery (SDC) | payer MEDICARE, OTHER ==
[~2020-04-30] MED LIST changes: +ACETAMINOPHEN 500 MG TABLET PO PRN; +BALANCED SALT IRRIG OPHTH SOLN 15 ML BOTTLE. IRR ONE; +BALANCED SALT IRRIG SOLN NO.2 500 ML IO ONE; +BENZONATATE 100 MG CAPSULE. PO PRN; +BRIMONIDINE 0.2% OPHTH SOLUTION 5ML BOTTLE. OD ONE; +CHONDROIT-SOD-HYALURONATE KIT. OD ONE; +IBUPROFEN 200 MG TABLET PO PRN; +IPRATRPIUM/ALBUTEROL 0.5/2.5MG 3 ML NEBU. NEB PRN; +IV RINGERS SOLUTION,LACTATED 1,000 ML IV SCH; +LIDO/EPI IN BSS OPHTH 2.7 ML SYRINGE. OD ONE; +MIDAZOLAM HCL PF 2 MG/2 ML VIAL. IV ONE; +MOXIFLOXACIN 0.5% OPHTH SOLUTION 3ML BOTTLE. OD SCH; +ONDANSETRON PF 4 MG/2 ML VIAL. IV PRN; +PHENYLEPHRINE 10% OPHTH SOLUTION 5ML BOTTLE. OD PRN; +POVIDONE-IODINE 5% OPHTH SOLUTION 30ML BOTTLE. OD ONE; +POVIDONE-IODINE 5% OPHTH SOLUTION 30ML BOTTLE. OD PRN; +PROPARACAINE 0.5% OPHTH SOLUTION 15ML BOTTLE. OD ONE; +PROPARACAINE 0.5% OPHTH SOLUTION 15ML BOTTLE. OD PRN; +TOBRAMYCIN 0.3% OPHTH SOLUTION 5ML BOTTLE. OD ONE; +prednisoLONE ACETATE 1% OPHTH SUSPENSION 5ML BOTTLE. OD ONE
[2020-04-30] MEDS: TROPICAMIDE 1% OPHTH SOLUTION 15ML BOTTLE. OD SCH ×3 (08:15→08:29)
[2020-04-30] MEDS: PHENYLEPHRINE 2.5% OPHTH SOLUTION 2ML BOTTLE. OD SCH ×3 (08:16→08:32)
[2020-04-30] MEDS: DICLOFENAC SODIUM 0.1% OPHTH SOLUTION 2.5ML BOTTLE. OD SCH ×2 (08:16→08:23)
--- NOTE | 2020-04-30 09:28 | PDOC4 ---
SURGEON: Chaim Walden MD Date of Procedure: 04/30/20 PREOP Diagnosis Visually significant cataract: Right Eye OD Pre-existing astigmatism: Right Eye OD POSTOP Diagnosis Same PROCEDURE: Phaco w/ posterior chamber IOL: Right Eye OD ANESTHESIA Deep forniceal periocular 2% Lidocaine jelly Josi/retro bulbar block with 2% Lidocaine with 0.5% Marcaine DESCRIPTION OF PROCEDURE The risks, benefits, and alternatives were discussed with the patient who elected to proceed. Informed consent was obtained in writing and placed in the chart After anesthetizing the eye topically, the patient was taken to the operating room, and the operative eye was prepped and draped in the usual sterile fashion for ocular surgery. A wire lid speculum was placed. A 1-mm clear corneal paracentesis incision was created with the side-port blade at a position three o'clock hours clockwise from the temporal cornea. Then, 1% non-preserved Lidocaine with epinephrine was injected into the anterior chamber followed by viscoelastic. Cotton-tipped applicators were used to stabilize the globe, and a 2.4 mm keratome was used to create a self-sealing incision in clear cornea at the temporal limbus. The Utrata forceps were used to create a continuous curvilinear capsulorrhexis. Balanced saline solution was injected v ia cannula beneath the capsulorrhexis edge to hydrodissect the lens nucleus and cortex from the lens capsule. The phacoemulsification handpiece and a chopping instrument were then used to remove the lens nucleus. The remaining epinuclear material and cortex were removed with the irrigation/aspiration handpiece. Viscoelastic was used to re-inflate the lens capsule, and the intraocular lens was injected directly into the capsular bag. The corneal wound edges were hydrated with balanced salt solution on a cannula and the irrigation/aspiration handpiece was used to extract the remaining viscoelastic. Cefuroxime 0.1mg/ml / Vigamox 0.5% was injected into the anterior chamber intracamerally. The wounds were inspected and found to be watertight at an appropriate intraocular pressure. Topical antibiotic drops were placed on the corneal surface. LRI: No If Yes, Number [] [place] [] Length [] degrees Depth [] microns Incision [place]: 180 Toric Lens [place] [[id number]] Patch/shield with Maxitrol/Tobradex/Erythromycin ointment: 2 Yes No Co-managed patients/postop examination stable for co-management with referring doctor. CHAIM WALDEN MD Apr 30, 2020 09:28
[2020-04-30 09:38] VITALS: BP 159/81
== END | disposition home or self-care (01) ==
LOC: SURG 07:56
PROVIDERS: ATTEND Ophthalmology
DX: H25.11 Age-related nuclear cataract, right eye (principal); H52.201 Unspecified astigmatism, right eye; J45.909 Unspecified asthma, uncomplicated; I11.0 Hypertensive heart disease with heart failure; I50.9 Heart failure, unspecified; E78.00 Pure hypercholesterolemia, unspecified; Z98.890 Other specified postprocedural states; Z79.899 Other long term (current) drug therapy; Z90.49 Acquired absence of other specified parts of digestive tract; Z88.0 Allergy status to penicillin; Z88.8 Allergy status to other drugs, medicaments and biological substances; Z88.1 Allergy status to other antibiotic agents; Z87.442 Personal history of urinary calculi
CPT/HCPCS: 66984; J2250; V2632

== ENCOUNTER → 2021-05-11 | Outpatient (CLI) | payer MEDICARE, OTHER ==
[2020-04-30 09:38] VITALS: BP 159/81
[~2021-05-11] MED LIST changes: -ACETAMINOPHEN 500 MG TABLET PO PRN; -BALANCED SALT IRRIG OPHTH SOLN 15 ML BOTTLE. IRR ONE; -BALANCED SALT IRRIG SOLN NO.2 500 ML IO ONE; -BENZONATATE 100 MG CAPSULE. PO PRN; -BRIMONIDINE 0.2% OPHTH SOLUTION 5ML BOTTLE. OD ONE; -CHONDROIT-SOD-HYALURONATE KIT. OD ONE; -IBUPROFEN 200 MG TABLET PO PRN; -IPRATRPIUM/ALBUTEROL 0.5/2.5MG 3 ML NEBU. NEB PRN; -IV RINGERS SOLUTION,LACTATED 1,000 ML IV SCH; -LIDO/EPI IN BSS OPHTH 2.7 ML SYRINGE. OD ONE; -MIDAZOLAM HCL PF 2 MG/2 ML VIAL. IV ONE; -MOXIFLOXACIN 0.5% OPHTH SOLUTION 3ML BOTTLE. OD SCH; -ONDANSETRON PF 4 MG/2 ML VIAL. IV PRN; -PHENYLEPHRINE 10% OPHTH SOLUTION 5ML BOTTLE. OD PRN; -POVIDONE-IODINE 5% OPHTH SOLUTION 30ML BOTTLE. OD ONE; -POVIDONE-IODINE 5% OPHTH SOLUTION 30ML BOTTLE. OD PRN; -PROPARACAINE 0.5% OPHTH SOLUTION 15ML BOTTLE. OD ONE; -PROPARACAINE 0.5% OPHTH SOLUTION 15ML BOTTLE. OD PRN; -TOBRAMYCIN 0.3% OPHTH SOLUTION 5ML BOTTLE. OD ONE; -prednisoLONE ACETATE 1% OPHTH SUSPENSION 5ML BOTTLE. OD ONE
--- NOTE | 2021-05-11 17:46 | CARD ---
MR#: [id number] Date of Study: 05/11/2021 Ordering Physician: QUETA ELDRIDGE, Referring Physician: QUETA ELDRIDGE, Tech: Brit Ball, [facility] APPROVED REPORT EXAM: Two-dimensional and M-mode echocardiogram with Doppler and color Doppler. Other Information Quality : AverageHR: 61bpm INDICATION Cardiomyopathy RISK FACTORS Hypertension Hyperlipidemia Asthma 2D DIMENSIONS Left Atrium(2D)2.7 (1.6-4.0cm)IVSd0.8 (0.7-1.1cm) Aortic Root(2D)3.0 (2.0-3.7cm)LVDd5.7 (3.9-5.9cm) LVOT Diameter2.0 (1.8-2.4cm)PWd0.9 (0.7-1.1cm) LVDs3.0 (2.5-4.0cm)FS (%) 46.1 % SV121.0 mlLVEF(%)76.9 (>50%) Aortic Valve AoV Peak Leonidas.155.5cm/sAoV VTI35.9cm AO Peak GR.9.7mmHgLVOT Peak Leonidas.99.3cm/s LVOT VTI 20.20cmAO Mean GR.5mmHg ERIK (VMAX)1.81jy5HSO (VTI)1.75cm2 Mitral Valve MV E Hnfzgxqo04.6cm/sMV E Peak Gr.4mmHg MV DECEL [id number] A Hjiiavrb09.8cm/s MV E Mean Gr.1mmHgE/A Ratio0.7 Pulmonary Valve PV Peak Usqphyvl676.4cm/sPV Peak Grad.4mmHg Tricuspid Valve TR P. Vdtqcfzi722to/sRAP AYGESEZZ9zuTt TR Peak Gr.90coXhQYUU39gyYq Pulmonary Vein S1 Ywjuhdfb40.6cm/sD2 Mlqxhnqj64.0cm/s LEFT VENTRICLE The left ventricle is normal size. There is normal left ventricular wall thickness. The left ventricu lar systolic function is moderately impaired. The Ejection Fraction is 35%. Septal motion consistent with conduction abnormality. Transmitral Doppler flow pattern is Grade I-abnormal relaxation pattern. RIGHT VENTRICLE The right ventricle is normal size. There is normal right ventricular wall thickness. The right ventr icular systolic function is normal. ATRIA The left atrium size is normal. The right atrium size is normal. The interatrial septum is intact wit h no evidence for an atrial septal defect or patent foramen ovale as noted on 2-D or Doppler imaging. AORTIC VALVE The aortic valve is normal in structure and function. Doppler and Color Flow revealed trace aortic re gurgitation. There is no significant aortic valvular stenosis. Calculated aortic valve area is 1.8 cm 2 with maximum pressure gradient of 10 mmHg and mean pressure gradient of 6 mmHg. MITRAL VALVE The mitral valve is normal in structure and function. There is no evidence of mitral valve prolapse. There is no mitral valve stenosis. Doppler and Color Flow revealed no mitral valve regurgitation note d. TRICUSPID VALVE The tricuspid valve is normal in structure and function. Doppler and Color Flow revealed trace tricus pid regurgitation with an estimated PAP of 31 mmHg. There is no tricuspid valve stenosis. PULMONIC VALVE The pulmonic valve is not well visualized. GREAT VESSELS The aortic root is normal in size. The ascending aorta is normal in size. The IVC is normal in size a nd collapses >50% with inspiration. PERICARDIAL EFFUSION There is no evidence of significant pericardial effusion. Critical Notification Critical Value: No <Conclusion> The left ventricular systolic function is moderately impaired. The Ejection Fraction is 35%. Transmitral Doppler flow pattern is Grade I-abnormal relaxation pattern. Trace tricuspid regurgitation with an estimated PAP of 31 mmHg. There is no evidence of significant pericardial effusion. Signed by : Wander Luo, Electronically Approved : 05/11/2021 17:46:35
== END ==
LOC: ECHO 10:42
PROVIDERS: ATTEND Internal Medicine Cardiovascular Disease
DX: I51.89 Other ill-defined heart diseases (principal); I42.9 Cardiomyopathy, unspecified
CPT/HCPCS: 93306

== ENCOUNTER → 2021-05-27 | Outpatient (CLI) | payer MEDICARE, OTHER ==
[2020-04-30 09:38] VITALS: BP 159/81
[2021-05-27 11:39] LABS: BASO % 1 % (0-3); EOS # 0.2 x10^3/uL (0.0-0.7); EOS % 2 % (0-3); HEMATOCRIT 40.5 % (36.0-47.0); HEMOGLOBIN 13.2 g/dL (12.0-15.5); LYMPH # 2.8 x10^3/uL (1.0-4.8); LYMPH % 35 % (24-48); MEAN CORPUSCULAR HEMOGLOBIN 27 pg (25-35); MEAN CORPUSCULAR HGB CONC 33 g/dL (31-37); MEAN CORPUSCULAR VOLUME 84 fL (79-100); MONO # 0.6 x10^3/uL (0.0-1.1); MONO % 8 % (0-9); NEUT # 4.4 x10^3uL (1.8-7.7); NEUT % 55 % (31-73); PLATELET COUNT 244 x10^3/uL (140-400); RED BLOOD COUNT 4.83 x10^6/uL (3.50-5.40)
[2021-05-27 12:03] LABS: ALBUMIN 4.1 g/dL (3.4-5.0); ALBUMIN/GLOBULIN RATIO 1.3 (1.0-1.7); CREATININE 0.8 mg/dL (0.6-1.0); GFR 70.7; POTASSIUM 4.3 mmol/L (3.5-5.1); TOTAL BILIRUBIN 0.4 mg/dL (0.2-1.0); TOTAL PROTEIN 7.3 g/dL (6.4-8.2)
== END ==
LOC: LAB 10:28
PROVIDERS: ATTEND Nuclear Medicine Nuclear Cardiology
DX: I42.9 Cardiomyopathy, unspecified (principal)
CPT/HCPCS: 36415; 80053; 83880; 85025